=== PATIENT | female | born 1960 | race Caucasian/White ===

== ENCOUNTER → 2018-08-10 08:09 | Outpatient (CLI) | payer OTHER, SELFPAY ==
[2018-08-10 16:51] LABS: BUN 8 mg/dL (7-18); EST Glomerular Filtration Rate 61 mL/min (>60); Est Glom Filt Rate - Afr Amer 74 mL/min (>60); Glucose 80 mg/dL (74-106)
[2018-08-10 16:52] LABS: Anion Gap 10 (5-15); Calcium,Total 8.6 mg/dL (8.5-10.1); Chloride 107 mmol/L (98-107); Cholesterol 228 mg/dL (200); High Density Lipoprotein 40 mg/dL; Potassium 3.9 mmol/L (3.5-5.1); Sodium Level 142 mmol/L (136-145); Triglycerides 162 mg/dL; Very Low Density Lipoprotein 32 mg/dL (5-40)
== END ==
PROVIDERS: Family Provider Family Medicine; PCP Family Medicine; Visit Provider Family Medicine
DX: Z00.00 Encounter for general adult medical examination without abnormal findings (principal)
CPT/HCPCS: 36415; 80048; 80061; 82306

== ENCOUNTER → 2021-06-15 | Outpatient (CLI) | payer OTHER, SELFPAY | END | disposition home or self-care (01) | LOC: LABSPEC 06-16 10:20 | PROVIDERS: PCP Family Medicine; Referring Provider Family Medicine; Visit Provider Family Medicine | DX: U07.1 COVID-19 (principal) | CPT/HCPCS: 87635; U0005; U0003 ==

== ENCOUNTER 2022-12-01 17:19 | Observation (INO) | payer OTHER, SELFPAY ==
[2022-12-01 17:20] VITALS: BP 137/77; PULSE 65; RESP 16; TEMP 37; O2SAT 100; BMI 25.7
--- NOTE | 2022-12-01 17:36 | EKG12_ITS ---
Test Reason : Blood Pressure : / mmHG Vent. Rate : 058 BPM Atrial Rate : 058 BPM P-R Int : 146 ms QRS Dur : 070 ms QT Int : 424 ms P-R-T Axes : 029 025 038 degrees QTc Int : 416 ms Sinus bradycardia Otherwise normal ECG When compared with ECG of 30-JUL-2014 22:18, No significant change was found Confirmed by NIKI COBURN, KIKI ([id number]), industrial editor RAMON MIRANDA ([id number]) on 12/03/2022 8:14:38 AM Referred By: Van Ceron Confirmed By:KIKI PRINCE MD
[2022-12-01 18:00] VITALS: O2SAT 100
--- NOTE | 2022-12-01 18:04 | PCM.HP.STD ---
HPI - General General Date of Admission: 12/01/22 Date of Service: 12/01/22 Chief Complaint: Dizzy lightheaded syncope. Intermittent chest pain. HPI Narrative BILL SOTO, is a 62 F is being directly admitted from the [place] ER for dizziness lightheadedness and syncope. As per the ER physician patient felt lightheaded and dizzy while she was working. After that she felt blurry vision and it starts in front of her eyes and then she passed or for few seconds. As per coworkers it was not long and she came back but was little unaware of where she was in the beginning. She also felt missed heartbeat/top heartbeat before passing out. She was taken to [place] ED. There she had vitals normal. Temperature 36.5 ?F. Heart rate and blood pressure respiratory and pulse ox normal. Twelve-lead EKG shows mild sinus tachycardia 104 bpm, IA interval 0.094-second. QTc [address]-T changes. Repeat EKG in [place] shows normal sinus rhythm 92 beats. 2 troponins, EKG done in PCU shows sinus bradycardia 58 bpm, QTc 460 ms. Patient further stated that she had intermittent localized chest pain left anterior in April which moved to right side. It felt like deep in the muscle or bone. It was not radiating. After that she had similar chest pain on left side about 2 months ago and she thought it was heartburn. She never had a stress test or echo. She denies chest pain pressure or tightness today during episode of syncope or afterwards. [facility] Medical History Anxiety Cancer GERD (gastroesophageal reflux disease) High cholesterol Migraines Osteoporosis Smoker Teratoma Home Medications meclizine 25 mg tablet (Antivert) 25 mg PO Q8H PRN PRN Vertigo #20 tabs 07/31/14 [Rx Last Taken Unknown] Allergy/AdvReac Type Severity Reaction Status Date / Time cefadroxil hydrate Allergy Hives Verified 07/30/14 21:34 [facility] prednisone AdvReac Rash Verified 12/01/22 18:05 Surgical History History of appendectomy Social History Smoking Status: Current every day smoker tobacco type: cigarettes ROS ROS Narrative Constitutional: Reports fatigue and weakness. No fever. HEENT: Reports systems reviewed and no addt'l complaints, except as documented Respiratory/Chest: No acute shortness of breath or respiratory distress or wheezing. History of smoking about a pack per day since age of 25. CVS: Syncope as described in HPI. No chest pain this time. Gastrointestinal: Denies coffee ground emesis, hematemesis or vomiting. No abdominal pain Genitourinary: Denies burning urination or new urinary tract symptoms Musculoskeletal: Denies acute joint pain or limited range of motion. No acute injury Neurologic: Denies seizure-like symptoms. No strokelike symptoms. skin: No ulcer. No rash Endocrinology: Reports systems reviewed and no addt'l complaints, except as documented Hematologic/Lymphatic: Reports systems reviewed and no addt'l complaints, except as documented Rest 14 ROS are negative except as mentioned in HPI Vital Signs Vital Signs Vital Signs: 12/01/22 17:20 Temperature 98.6 F Temperature Source Oral Pulse Rate 65 Respiratory Rate 16 Blood Pressure 137/77 H Blood Pressure Mean 97 Blood Pressure Source Monitor Blood Pressure Position Semi-Fowlers Blood Pressure Location Left Arm Pulse Ox 100 Oxygen Delivery Method Room Air Weight Weight: 174 lb 6.4 oz Body Mass Index (BMI) 25.7 Physical Exam Narrative General: Alert, Oriented x3, Cooperative HEENT: Atraumatic, PERRLA, EOMI, Normocephalic Oral: Oral mucosa moist. No Gingival or Mucosal Lesions/ Ulcerations Neck: Supple, No JVD, Negative Carotid Bruits Lungs: Air entry diminished in bilateral lung bases. No crepitation/rhonchi Cardiovascular: Sinus bradycardia, Normal S1, Normal S2, No murmurs Abdomen: Bowel Sounds Present, Soft, Non Tender, Non-Distended : No renal angle tenderness. No suprapubic tenderness. Extremities: No edema, Capillary Refill Less than 3 Seconds Skin: No rashes, No breakdown Musculoskeletal: No Tenderness to Palpation of Joints or Extremities Neurological: Cranial nerves II-XII grossly intact, DTR 2+/4 and Symmetrical, Neuro grossly intact Psych/Mental Status: Normal Affect, Appropriate. Assessment & Plan Assessment/Plan (1) Syncope: (2) Chest pain, atypical: PLAN: Plan This is Duraflu admitted from [place] ER for syncope and intermittent chest pain. 1. Syncope exact etiology unclear possible vasovagal/cardiac arrhythmia: The patient is being admitted in PCU. She stated she felt missed heartbeat or dropped heart rate before passing out therefore suspicion of cardiac arrhythmia. First EKG was sinus tachycardia 104 and then she slowed down last EKG sinus bradycardia 58 bpm. 2 troponins in [place] are negative. 2D echo tomorrow AM. Orthostatic hypotension. She denies any prior history of syncope. Labs reviewed. CBC within normal limit. Magnesium was normal. TSH 4.26. Glucose 114. Creatinine 1.02. BMP ordered. 2. Intermittent chest pain in past: DiMenna score is 1 with history of dyslipidemia, family history of coronary artery disease and current smoker: Repeat third troponin. Treadmill nuclear stress test tomorrow AM. Her father had coronary artery disease and required bypass probably in 70s. BP is normal. 3. Incidental finding of 0.8 cm enhancing lesion along the dome of the right lobe of liver: CT PA was done to rule out PE. No evidence of pulmonary embolism but found that valve lesion. Recommended elective MRI contrast study by PCP as an outpatient. 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 Patient advised to quit smoking. Home medication only shows meclizine. She states he is on 5 mg rosuvastatin. Fasting profile, TSH tomorrow AM. VTE prophylaxis: Heparin 5000 units subcutaneous every 8 hourly. Living will/advanced directive/end of life care: Patient does not have living will or advanced directive. After discussion of benefits/risks procedures involved with full code, DNR CC arrest and DNR CC, the patient opted for full code. Patient does want artificial life support including intubation, tube feed, ventilator and/chest compression, central venous catheter, vasopressor and DC shock if needed Total time spent in [id number] encounter in discussion of advanced directive 17 minutes. Charges/Coding Visit Charges Inpatient E&M: 57586 Init Hosp L3 Procedures Hospitalists Procedures: 73378 Advncd Care Plan 30 Min
--- NOTE | 2022-12-01 18:05 | ECHOD_ITS ---
Reason For Study: SYNCOPE Procedure This was a 2D Doppler, Color Flow transthoracic echocardiogram. Exam performed in department. Left Ventricle Normal LV size. Left ventricular systolic function is normal. The estimated ejection fraction is 60 %. No regional wall motion abnormalities noted. Right Ventricle Normal RV size. Normal systolic function. Atria Normal left atrium. Normal right atrium. Mitral Valve Normal mitral valve. Tricuspid Valve Normal tricuspid valve. Mild (1+) tricuspid valve insufficiency. Pulmonary artery systolic pressure is 34 mmHg. Aortic Valve Normal aortic valve. Trisinus/trileaflet aortic valve. Pulmonic Valve Normal pulmonic valve. Great Vessels Normal aortic root. The pulmonary artery is normal size. Normal inferior vena cava. Pericardium/Pleural No pericardial effusion. MMode/2D Measurements & Calculations LVIDd: 3.8 cm IVSd: 1.0 cm Ao root diam: 3.3 cm LVIDs: 2.9 cm LVPWd: 0.90 cm RVDd: 3.1 cm FS: 24.5 % LAV(MOD-bp): 53.5 ml LVAd ap4: 23.1 cm2 SV(MOD-sp4): 37.3 ml LAV(MOD-bp) Indexed: 27.5 ml/m2 LVLd ap4: 7.9 cm LAV(MOD-sp2): 74.4 ml EDV(MOD-sp4): 54.4 ml LAV(MOD-sp4): 33.6 ml EDV(sp4-el): 57.6 ml LVAs ap4: 11.0 cm2 LVLs ap4: 6.1 cm ESV(MOD-sp4): 17.1 ml ESV(sp4-el): 16.7 ml EF(MOD-sp4): 68.6 % EF(sp4-el): 71.0 % SV(sp4-el): 40.9 ml LA A4 area: 14.6 cm2 LA dimension(2D): 3.3 cm RA A4 area: 15.9 cm2 Time Measurements MV dec time: 0.27 sec Doppler Measurements & Calculations MV E max maxim: 96.0 cm/sec Lat Peak E' Maxim: 13.0 cm/sec Med Peak E' Maxim: 8.3 cm/sec MV A max maxim: 67.1 cm/sec E/E' lat: 7.4 E/E' med: 11.5 MV E/A: 1.4 MV V2 max: 87.6 cm/sec Ao V2 max: 149.3 cm/sec MV max P.1 mmHg MV dec slope: 363.0 cm/sec2 Ao max P.9 mmHg MV V2 mean: 52.6 cm/sec Ao V2 mean: 100.7 cm/sec MV mean P.3 mmHg Ao mean P.6 mmHg MV V2 VTI: 30.4 cm Ao V2 VTI: 35.0 cm AV (velocity ratio): 0.86 AI max maxim: 389.0 cm/sec LV V1 max: 136.3 cm/sec MR max maxim: 520.3 cm/sec AI max P.6 mmHg LV V1 max P.4 mmHg MR max P.3 mmHg LV V1 mean P.8 mmHg MR mean maxim: 425.0 cm/sec AI dec slope: 121.8 cm/sec2 LV V1 mean: 91.1 cm/sec MR mean P.8 mmHg AI P1/2t: 935.2 msec LV V1 VTI: 30.0 cm MR VTI: 196.8 cm PA V2 max: 101.9 cm/sec TR max maxim: 279.5 cm/sec PA V2 mean: 69.4 cm/sec TR max P.2 mmHg ECHO/Echo Complete Interpretation Summary Normal LV size. Left ventricular systolic function is normal. The estimated ejection fraction is 60 %. Pulmonary artery systolic pressure is 34 mmHg. Structurally normal valves. Ordering Physician: Van Ceron Referring Physician: Van Ceron Performed By: Denise Blankenship RCS
[2022-12-01] MEDS: 0.9% Normal Saline 1,000 ML 75 ML IV (18:06)
[2022-12-01 18:50] VITALS: BP 128/72; BP 141/80; BP 142/90; PULSE 58; PULSE 66; PULSE 75
[2022-12-01 18:52] LABS: Troponin-I HS 4 pg/mL (3.0-54.0)
[2022-12-01 19:55] VITALS: O2SAT 97
[2022-12-01 21:08] LABS: AST(SGOT) 14 U/L (15-37); Alanine Aminotransfer ALT/SGPT 18 U/L (13-56); Albumin, Serum 3.3 g/dL (3.2-5.0); Alkaline Phosphatase 94 U/L (45-117); Anion Gap 3 (5-15); BUN 12 mg/dL (7-18); BUN/Creat Ratio 11.4 RATIO (10-20); Calcium,Total 9.1 mg/dL (8.5-10.1); Chloride 111 mmol/L (98-107); Creatinine, Serum 1.05 mg/dL (0.55-1.02); EST Glomerular Filtration Rate 56 mL/min (>60); Est Glom Filt Rate - Afr Amer 68 mL/min (>60); Estimated Creatinine Clearance 58.06 ml/min; Globulin 3.4 g/dL (2.2-4.2); Glucose 89 mg/dL (74-106); Potassium 3.8 mmol/L (3.5-5.1); Protein, Total 6.7 g/dL (6.4-8.2); Sodium Level 142 mmol/L (136-145); Troponin-I HS 6 pg/mL (3.0-54.0)
[2022-12-01 21:30] VITALS: BP 132/75; PULSE 60; RESP 16; TEMP 36.4; O2SAT 97
[2022-12-01] MEDS: Heparin Injection (Vial) 5,000 UNIT/ML VIAL 5000 UNIT SC (21:34)
[2022-12-01] MEDS: Atorvastatin Calcium 40 MG Tablet PO (21:34)
[2022-12-02 00:49] LABS: Troponin-I HS 6 pg/mL (3.0-54.0)
[2022-12-02 03:30] VITALS: BP 131/74; PULSE 61; RESP 16; TEMP 36.6; O2SAT 98
--- NOTE | 2022-12-02 05:55 | EKG12_ITS ---
Test Reason : AM EKG Blood Pressure : / mmHG Vent. Rate : 061 BPM Atrial Rate : 061 BPM P-R Int : 156 ms QRS Dur : 086 ms QT Int : 430 ms P-R-T Axes : 035 038 032 degrees QTc Int : 432 ms Normal sinus rhythm Normal ECG When compared with ECG of 01-DEC-2022 17:25, MANUAL COMPARISON REQUIRED, DATA IS UNCONFIRMED Confirmed by NIKI COBURN, KIKI ([id number]), assignment desk editor RAMON MIRANDA ([id number]) on 12/03/2022 8:14:27 AM Referred By: Van Ceron Confirmed By:KIKI PRINCE MD
[2022-12-02] MEDS: Aspirin E.C. 81 MG Tablet PO (05:57)
[2022-12-02 06:13] LABS: Absolute Lymphocyte Count 1.63 X10^3/uL (0.83-4.51); Absolute Neutrophil Count 4.5 X10^3/uL (2.0-7.7); Basophil# 0.06 X10^3/uL; Basophil% 0.9 % (0-1); Eosinophil# 0.11 X10^3/uL; Eosinophils% 1.6 % (0-5); Hematocrit 39.5 % (37-47); Hemoglobin 12.8 g/dL (12.0-15.0); Lymphocyte # 1.63 X10^3/ul (0.83-4.51); Lymphocyte % 24.1 % (19-41); Mean Corp Hgb Conc 32.4 g/dL (32-36); Mean Corpuscular Hgb 29.8 pg (27.0-32.0); Mean Corpuscular Volume 92.1 fL (81-99); Mean Platelet Vol. 10.5 fl (6.2-12.0); Monocyte# 0.47 X10^3/uL; NRBC Flagged by Analyzer 0 % (0-5); Neutrophil # 4.46 X10^3/uL (2.7-7.7); Platelet Count 171 K/mm3 (150-450); RBC Distribution Width CV 13.3 % (11.6-14.6); RBC Distribution Width SD 44.7 fl (35.1-43.9); Red Blood Count 4.29 M/mm3 (4.2-5.4); White Blood Count 6.8 K/mm3 (4.4-11.0)
[2022-12-02 07:00] VITALS: O2SAT 95
[2022-12-02 07:09] LABS: Cholesterol 122 mg/dL (200); High Density Lipoprotein 41 mg/dL; T4 Free Direct 0.96 ng/dL (0.76-1.46); Thyroid Stim Hormone (TSH) 3.77 uIU/mL (0.358-3.74); Triglycerides 104 mg/dL; Very Low Density Lipoprotein 21 mg/dL (5-40)
[2022-12-02 09:27] LABS: Hemoglobin A1c 5.2 % (3.8-5.6)
[2022-12-02 10:32] VITALS: BP 110/76; PULSE 61; RESP 17; TEMP 36.9; O2SAT 100
--- NOTE | 2022-12-02 14:40 | DCINST_ITS ---
Discharge Instructions Diet Discharge Diet: No restrictions Activity Discharge Activity: Return to Normal Activity Follow Up Care Test Results: Test results from this visit will be discussed in further detail at your follow- up appointment, if applicable. Discharge Plan Admission Admit Date/Time: 12/01/22 17:19 Primary Reason for Your Visit: Episode of passing out, light headedness Attending Provider: Maia Alvarez Primary Care Provider: Daniel Shaffer Consulting Providers: Van Ceron Instructions Patient Instructions: Causes of Syncope, Dizziness Fainting Causes Additional Instructions / Restrictions: DISCHARGE INSTRUCTIONS PLEASE READ *Please take this with you to your next doctors appointment* -You will be discharged with instructions for a 30-day heart monitor to evaluate for any underlying abnormal heart rhythms -You were incidentally found to have a small spot on the right side of your liver, recommended elective MRI contrast study by PCP as an outpatient. -Please call your primary care provider's office upon discharge to schedule a hospital follow up within 1 week. -For any concerning signs or symptoms please call 911 or proceed to the nearest emergency department Discharge Orders/Prescriptions Prescriptions: Continued loratadine [Claritin] 10 mg Tablet 5 mg PO QHS rosuvastatin [Crestor] 5 mg Tablet 5 mg PO QHS aspirin 81 mg Capsule 81 mg PO QHS Other Ambulatory Orders: 30 Day Event Recorder Preventi (Urgent) Timeframe: 1 Day Facility: [facility] - Location: Cardiovascular Services Ordered By: Dr. Maia Alvarez Referrals / Follow Up: Daniel Shaffer MD [Primary Care Provider] - Within 1 Week Disposition Disposition (needs filled in before D/C Order can be placed): Home, Self Care
--- NOTE | 2022-12-02 14:42 | PCM.DC.SUM ---
Providers Date of Admission: 12/01/22 Date of Discharge: 12/02/22 Primary Care Physician: Dr. Daniel Shaffer MD Reason For Visit: CHEST PAIN, lightheadedness Diagnosis Discharge Diagnosis (1) Lightheadedness: Status: Acute Code(s): R42 - Dizziness and giddiness (2) Chest pain, atypical: Status: Acute Code(s): R07.89 - Other chest pain (3) Brief loss of consciousness: Status: Acute Code(s): R55 - Syncope and collapse Plan #Brief loss of consciousness #GERD #Anxiety #Migraines #History of teratoma Medications at Discharge Home Medications aspirin 81 mg capsule 81 mg PO QHS heart health 12/01/22 loratadine 10 mg tablet (Claritin) 5 mg PO QHS 12/01/22 rosuvastatin 5 mg tablet (Crestor) 5 mg PO QHS cholesterol 12/01/22 Hospital Course Procedures Nuclear stress test and Transthoracic echo Summary of Care Provided Minutes Spent on Discharge: 32 Hospital Course: Tiffanie Wright is a 62-year-old female with a history of anxiety, GERD, migraines, tobacco use, teratoma who presented to [facility] 12/01/2022 as a transfer from [facility] for lightheadedness and brief loss of consciousness. Patient was working and was sitting down and transiently felt lightheaded and felt like everything went black for a second. Notes that this was not prolonged as she had her vision cleared and she was still sitting up in the same position. No significant confusion afterwards, no loss of bowel or bladder. There is possibly some feeling of a missed heartbeat before passing out. Troponins negative, twelve-lead EKG with heart rate of 104 and AK 0.094 seconds, QTc [address] changes. Patient also endorsed some localized left anterior chest pain in April which moved to the right side and felt possibly muscle or bone but given that had happened and in light of new symptoms she was transferred and stress test and echo ordered. Patient had no further symptoms and stress test negative and echo was unrevealing. She had no further symptoms and telemetry overall unremarkable for any rhythm that would explain presenting problem. Patient feeling well and would like to go home. Discharge instructions as followed: DISCHARGE INSTRUCTIONS PLEASE READ *Please take this with you to your next doctors appointment* -You will be discharged with instructions for a 30-day heart monitor to evaluate for any underlying abnormal heart rhythms -You were incidentally found to have a small spot on the right side of your liver, recommended elective MRI contrast study by PCP as an outpatient. -Please call your primary care provider's office upon discharge to schedule a hospital follow up within 1 week. -For any concerning signs or symptoms please call 911 or proceed to the nearest emergency department Physical Exam Narrative General: Alert, oriented, no apparent distress HEENT: Atraumatic, normocephalic Eyes: Anicteric, normal conjunctiva, extraocular movements grossly intact Neck: Supple Respiratory: Clear to auscultation bilaterally, normal respiratory effort Cardiovascular: Regular rate and rhythm GI: Soft, nontender, nondistended Extremities: No edema Musculoskeletal: Moving all extremities Neuro: No overt focal neurological deficits Skin: No rashes appreciated Psych: Cooperative Weight / BMI Weight Weight: 79.107 kg Body Mass Index (BMI) 25.7 ABG / Lab / Microbiology Data Result Diagrams: 12/02/22 05:49 12/01/22 20:00 Laboratory: Laboratory Results - last 24 hr 12/01/22 18:06: Troponin I High Sens 4 12/01/22 20:00: Sodium 142, Potassium 3.8, Chloride 111 H, Carbon Dioxide 28.0, Anion Gap 3 L, BUN 12, Creatinine 1.05 H, Estim Creat Clear Calc 58.06, Est GFR (MDRD) Af Amer 68, Est GFR (MDRD) Non-Af 56 L, BUN/Creatinine Ratio 11.4, Glucose 89, Calcium 9.1, Total Bilirubin 0.30, AST 14 L, ALT 18, Alkaline Phosphatase 94, Troponin I High Sens 6, Total Protein 6.7, Albumin 3.3, Globulin 3.4, Albumin/Globulin Ratio 1.0 12/02/22 00:25: Troponin I High Sens 6 12/02/22 05:49: WBC 6.8, RBC 4.29, Hgb 12.8, Hct 39.5, MCV 92.1, MCH 29.8, MCHC 32.4, RDW Std Deviation 44.7 H, RDW Coeff of Janet 13.3, Plt Count 171, MPV 10.5, Immature Gran % (Auto) 0.400, Neut % (Auto) 66.0, Lymph % (Auto) 24.1, Maverick % (Auto) 7.0, Eos % (Auto) 1.6, Baso % (Auto) 0.9, Absolute Neuts (auto) 4.5, Absolute Lymphs (auto) 1.63, Nucleated RBC % 0 12/02/22 05:49: Triglycerides 104, Cholesterol 122, LDL Cholesterol 60, VLDL Cholesterol 21, HDL Cholesterol 41, TSH 3.77 H, Free T4 0.96 12/02/22 05:49: Hemoglobin A1c 5.2 Radiography Diagnostic Testing: Radiology Impression Echocardiogram 12/01/22 18:05 Interpretation Summary Normal LV size. Left ventricular systolic function is normal. The estimated ejection fraction is 60 %. Pulmonary artery systolic pressure is 34 mmHg. Structurally normal valves. Ordering Physician: Van Ceron Referring Physician: Van Ceron Performed By: Denise Blankenship RCS D/C Instructions Discharge Diet: No restrictions Meaningful Use Info Meaningful Use Diagnoses (Choose all that apply): None applicable Discharge Plan Admission Admit Date/Time: 12/01/22 17:19 Primary Reason for Your Visit: Episode of passing out, light headedness Attending Provider: Maia Alvarez Primary Care Provider: Daniel Shaffre Consulting Providers: Van Ceron Instructions Patient Instructions: Causes of Syncope, Dizziness Fainting Causes Additional Instructions / Restrictions: DISCHARGE INSTRUCTIONS PLEASE READ *Please take this with you to your next doctors appointment* -You will be discharged with instructions for a 30-day heart monitor to evaluate for any underlying abnormal heart rhythms -You were incidentally found to have a small spot on the right side of your liver, recommended elective MRI contrast study by PCP as an outpatient. -Please call your primary care provider's office upon discharge to schedule a hospital follow up within 1 week. -For any concerning signs or symptoms please call 911 or proceed to the nearest emergency department Discharge Orders/Prescriptions Prescriptions: Continued loratadine [Claritin] 10 mg Tablet 5 mg PO QHS rosuvastatin [Crestor] 5 mg Tablet 5 mg PO QHS aspirin 81 mg Capsule 81 mg PO QHS Other Ambulatory Orders: 30 Day Event Recorder Preventi (Urgent) Timeframe: 1 Day Facility: [facility] - Location: Cardiovascular Services Ordered By: Dr. Maia Alvarez Referrals / Follow Up: Daniel Shaffer MD [Primary Care Provider] - Within 1 Week Disposition Disposition (needs filled in before D/C Order can be placed): Home, Self Care Charges/Coding Visit Charges Inpatient E&M: 88710 Disch Hosp >30min
[2022-12-02 14:50] VITALS: BP 129/79; PULSE 58; RESP 18; TEMP 36.9; O2SAT 100
--- NOTE | 2022-12-02 17:55 | STRESSREP_ITS ---
Stress Test Report Exercise myocardial perfusion stress test. 62-year-old lady with a history of chest pain Stress protocol: Resting EKG demonstrates normal sinus rhythm with a rate of 66 bpm resting blood pressure is 122/82 mmHg. The patient exercised according to the regular Berry protocol for a total duration of 6 minutes attaining a maximum heart rate of 142 bpm which was 89% of maximum predicted heart rate; the maximum workload was 7 metabolic equivalents. At rest there were no ST or T wave changes noted to suggest ischemia and at peak exercise upsloping ST changes only were noted which did not meet the criteria for ischemia. No clinical angina was noted the test was terminated due to the target heart rate being achieved/fatigue. The peak bl ood pressure was 152/78 mmHg. Rate-pressure product was 19,900. Myocardial perfusion protocol. 11.8 mCi of technetium 99m sestamibi was injected at rest. The patient exercised according to regular Berry protocol for total duration of 6 minutes and at peak exercise 34.0 mCi of technetium 99m sestamibi was injected stress images were obtained stress and rest images were reconstructed in comparing the short axis vertical long and horizontal long axis. Gated images were also obtained. Perfusion SPECT analysis: Review of the stress images demonstrate normal uptake of tracer noted in all areas of the myocardium. The resting images similarly demonstrate normal uptake of tracer noted in all areas of the myocardium. No areas of reversibility are noted to suggest ischemia no previous infarct was noted. Gated SPECT analysis: The gated ejection fraction is 60%. Conclusion: Normal exercise myocardial perfusion stress test at a moderate workload Preserved ejection fraction.
== END 2022-12-02 14:41 | disposition home or self-care (01) ==
PROVIDERS: Admitting Provider Internal Medicine; PCP Family Medicine; Referring Provider Internal Medicine; Visit Provider Internal Medicine
DX: R07.89 Other chest pain (principal); R55 Syncope and collapse; E78.00 Pure hypercholesterolemia, unspecified; R42 Dizziness and giddiness; R00.1 Bradycardia, unspecified; F17.210 Nicotine dependence, cigarettes, uncomplicated; Z79.899 Other long term (current) drug therapy; Z79.82 Long term (current) use of aspirin; K21.9 Gastro-esophageal reflux disease without esophagitis; K76.9 Liver disease, unspecified
CPT/HCPCS: 36415; 78452; 80053; 80061; 83036; 84439; 84443; 84484; 85025; 93005; 93017; 93306; 94668; 96360; 96361; 96372; 99221; A9500; J7030; A4216; G0378; G0379

== ENCOUNTER → 2022-12-09 | Outpatient (CLI) | payer OTHER, SELFPAY ==
--- NOTE | 2022-12-09 07:23 | MRI_ITS ---
STUDY: MRI ABDOMEN WITH AND WITHOUT CONTRAST REASON FOR EXAM: Female, 62 years old. ABN FINDING ON RADIOLOGY EXAM TECHNIQUE: Standardized fat and water weighted pulse sequences were obtained in all 3 orthogonal planes post contrast administration. IV contrast was administered for the contrast portion of the examination (please see hospital documentation). COMPARISON: CT 12/01/2022 FINDINGS: Basilar chest is unremarkable. Sternotomy wires with susceptibility artifact. 9 mm hypointense T1 and hyperintense T2 lesion of the posterior right hepatic lobe/dome demonstrates restricted diffusion (image 24 series 7). Following IV contrast, there is arterial and venous enhancement which persists on delayed images Normal gallbladder and extrahepatic biliary system. Normal spleen. Normal pancreas. Normal bilateral adrenal glands. Normal right kidney. Normal left kidney. Visualized hollow viscus structures are unremarkable. Normal abdominal aorta. Normal inferior vena cava. Normal retroperitoneum. Normal abdominal wall. No bone marrow edema. MRI/MRI Abd WITH and W/O Contrast IMPRESSION: Subcentimeter hepatic hemangioma (benign) correlating to lesion on prior chest CT. Electronically Signed: Jacobo Serra ([place]), at 9:47 EDT ,
== END | disposition home or self-care (01) ==
PROVIDERS: PCP Family Medicine; Referring Provider Family Medicine; Visit Provider Family Medicine
DX: D18.03 Hemangioma of intra-abdominal structures (principal)
CPT/HCPCS: 74183; A9575; A4216